=== PATIENT | female | born 1965 | race Caucasian/White ===

== ENCOUNTER 2017-05-09 10:08 | Emergency (ER) | payer OTHER ==
[2017-05-09 10:18] VITALS: BP 133/64; PULSE 63; TEMP 98.9; BMI 22.4
[2017-05-09] MEDS ORDERED: KETOROLAC TROMETHAMINE 30 MG/1 ML VIAL IVPUSH ONE (10:29)
[2017-05-09] MEDS ORDERED: SODIUM CHLORIDE 1,000 ML IV STA (10:29)
[2017-05-09] MEDS ORDERED: KETOROLAC TROMETHAMINE 30 MG/1 ML VIAL ONE (10:35)
--- NOTE | 2017-05-09 10:45 | PDOC ---
History of Present Illness - General Chief Complaint: Pain Stated Complaint: BACK PAIN/FLANK PAIN Time Seen by Provider: 05/09/17 10:26 History Source: Patient Exam Limitations: No Limitations - History of Present Illness Initial Comments: 05/09/17 10:39 CHIEF COMPLAINT: Left lower back pain since 3 AM HISTORY OF PRESENT ILLNESS: This is a 52-year-old woman with a prior history of kidney stones as well as musculoskeletal back pain. Patient states she was seen here in early March with moderate back pain and had a CT scan which demonstrated no kidney stones, but positive degenerative joint disease. She was prescribed Flexeril at that time. She also has a prescription for Percocet from another provider. She states she has been doing well, without significant pain for a while. Yesterday she was feeling fine. During the night, she awoke at 3 AM with sudden severe left paralumbar back pain. The pain kind of radiates out from the area of the left kidney. There is no lateral flank pain. There is no anterior abdominal pain. There is no fever. There is no nausea or vomiting. There is no skin rash. There is no numbness or weakness in the legs. There is no bowel or bladder incontinence. There is no saddle anesthesia. The pain does not change with movement or activity. It has been present constantly the a.m., but waxes and wanes in severity unrelated to any activities. REVIEW OF SYSTEMS: GENERAL/CONSTITUTIONAL: No fever or chills. No weakness. No weight change. HEAD, EYES, EARS, NOSE AND THROAT: No change in vision. No ear pain or discharge. No sore throat. CARDIOVASCULAR: No chest pain or shortness of breath. RESPIRATORY: No cough, wheezing, or hemoptysis. GASTROINTESTINAL: No nausea, vomiting, diarrhea or constipation. No rectal bleeding. GENITOURINARY: No dysuria, frequency, or change in urination. No hematuria. MUSCULOSKELETAL: Positive left paralumbar back pain. SKIN AND BREASTS: No rash or easy bruising. NEUROLOGIC: No headache, vertigo, loss of consciousness, or loss of sensation. PSYCHIATRIC: No depression or anxiety. Prior history of depression, not active for 5 years. ENDOCRINE: No increased thirst. No abnormal weight change. HEMATOLOGIC/LYMPHATIC: No anemia, easy bleeding, or history of blood clots. ALLERGIC/IMMUNOLOGIC: No hives or skin allergy. No latex allergy. Past History - Past Medical History Allergies/Adverse Reactions: Allergies Allergy/AdvReac Type Severity Reaction Status Date / Time No Known Allergies Allergy Verified 05/09/17 10:10 Home Medications: Ambulatory Orders Nabumetone 750 mg PO BID PRN #28 tablet 05/09/17 Oxycodone HCl/Acetaminophen [Oxycodone-Acetaminophen 5-325] 1 each PO Q6H PRN # 6 tablet MDD 4 05/09/17 Kidney Stones: Yes (x3) - Surgical History Appendectomy: Yes Other Surgical History: 05/09/17 10:43 section - Suicide/Smoking/Psychosocial Hx Smoking History: Former smoker Have you smoked in the past 12 months: No Information on smoking cessation initiated: No Hx Alcohol Use: Yes (WITH DINNER SOCIALLY, one and a half glasses of wine with dinner) Drug/Substance Use Hx: No Substance Use Type: None *Physical Exam - Vital Signs Last Vital Signs Temp Pulse Resp BP Pulse Ox 98.9 F 63 18 133/64 99 05/09/17 10:09 05/09/17 10:09 05/09/17 10:09 05/09/17 10:09 05/09/17 10:09 - Physical Exam Comments: 05/09/17 10:43 GENERAL: The patient is awake, alert, and fully oriented, in no acute distress. HEAD: Normal with no signs of trauma. EYES: Pupils equal, round and reactive to light, extraocular movements intact, sclera anicteric, conjunctiva clear. ENT: Ears normal, nares patent, oropharynx clear without exudates. Moist mucous membranes. NECK: Normal range of motion, supple without lymphadenopathy, JVD, or masses. LUNGS: Breath sounds equal, clear to auscultation bilaterally. No wheezes, and no crackles. No pain with deep inspiration. HEART: Regular rate and rhythm, normal S1 and S2 without murmur, rub or gallop. ABDOMEN: Soft, nontender, normoactive bowel sounds. No guarding, no rebound. No masses. No flank tenderness. BACK: No CVA tenderness. Positive pain in the left paralumbar region, not affected by palpation. EXTREMITIES: Normal range of motion, no edema. No clubbing or cyanosis. No cords, erythema, or tenderness. NEUROLOGICAL: Cranial nerves II through XII grossly intact. Normal speech, walking somewhat slowly due to pain, normal gait. Normal strength throughout both legs. Normal sensation throughout both legs. PSYCH: Normal mood, normal affect. SKIN: Warm, Dry, normal turgor, no rashes or lesions noted. ED Treatment Course - LABORATORY CBC & Chemistry Diagram: 05/09/17 10:30 05/09/17 10:30 Medical Decision Making - Medical Decision Making 05/09/17 13:19 Patient is a 52-year-old woman with a history of both kidney stones as well as osteoarthritis of the lumbar spine. She presents today with onset at 3 AM of left paralumbar pain. There are no urinary symptoms. The pain is not related to movement. There is no fever and no history of trauma. On examination, there is no focal tenderness. There is no tenderness over the lumbar spine. The neurological examination is normal. Laboratory workup notable for normal urinalysis without hematuria. CBC is normal. Chemistry with mild hyponatremia, not significant. Initial impression was possible kidney stone versus musculoskeletal back pain. Patient was treated with IV Toradol with minimal relief. She was then given 1 mg of hydromorphone with good relief of pain. CT scan of the abdomen and pelvis showed no evidence of kidney stones. There was degenerative change in the lumbar spine as well as some enlargement of the thecal sac. Follow-up with the spine doctor as well as MRI was recommended, and this was discussed with the patient. Final impression: Musculoskeletal back pain. No evidence for acute renal colic. *DC/Admit/Observation/Transfer Diagnosis at time of Disposition: Back pain Qualifiers: Back pain location: low back pain Chronicity: acute Back pain laterality: left Sciatica presence: without sciatica Qualified Code(s): M54.5 - Low back pain; M54.5 - Low back pain - Discharge Dispostion Disposition: HOME Condition at time of disposition: Stable Admit: No - Prescriptions Prescriptions: Nabumetone 750 mg PO BID PRN #28 tablet PRN Reason: Back Pain Oxycodone HCl/Acetaminophen [Oxycodone-Acetaminophen 5-325] 1 each PO Q6H PRN # 6 tablet MDD 4 PRN Reason: Severe Pain - Referrals Referrals: Rick Edwards MD [Staff Physician] - 2 Days - Patient Instructions Printed Discharge Instructions: DI for Low Back Pain Additional Instructions: You were evaluated today for low back pain. The CAT scan shows no signs of kidney stones. There are some changes in the lumbar spine that should be followed up with the orthopedic spine doctor, Dr. Rick Edwards. Dr. Edwards will be able to review your CT scan findings in the computer. Take nabumetone twice a day with food as needed for pain. Take oxycodone as needed for severe pain. The prescriptions have been sent to your pharmacy electronically. Return to the emergency department for any severe or progressive symptoms.
[2017-05-09] MEDS ORDERED: HYDROmorphone HCL CARPU-JECT 1 MG/1 ML DISP.SYRIN ONE (10:50)
[2017-05-09] MEDS ORDERED: HYDROmorphone HCL CARPU-JECT 1 MG/1 ML DISP.SYRIN IVPUSH ONE (10:50)
[2017-05-09 10:53] LABS: PH,URINE 5.5 (4.5-8); URINE APPEARANCE Clear; URINE BILIRUBIN Negative (NEGATIVE); URINE BLOOD Negative (NEGATIVE); URINE GLUCOSE (UA) Negative (NEGATIVE); URINE KETONE Negative (NEGATIVE); URINE LEUK ESTERASE Negative (NEGATIVE); URINE NITRITE Negative (NEGATIVE); URINE PROTEIN Negative (NEGATIVE); URINE UROBILINOGEN 0.2 (0.2-1.0)
[2017-05-09 10:54] LABS: URINE COLOR YELLOW
[2017-05-09 10:59] LABS: BASOPHIL 0.3 % (0-2.0); EOSINOPHIL 0.2 % (0-4.5); MCH 31.4 pg (25.7-33.7); MEAN CELL VOLUME 92.3 fl (80-96); MEAN PLT VOLUME 9.3 fl (7.5-11.1); NEUTROPHILS 70.4 % (42.8-82.8); PLATELET COUNT 252 K/MM3 (134-434); RDW 12.4 % (11.6-15.6); WHITE BLOOD COUNT 5.4 K/mm3 (4.0-10.8)
[2017-05-09 12:12] LABS: CREATININE 0.7 mg/dl (0.6-1.3); GLUCOSE,RANDOM 99 mg/dl (74-106)
[2017-05-09 12:13] LABS: ANION GAP 7 (8-16); CALCIUM 9.3 mg/dl (8.4-10.2); CO2 25 mmol/L (22-28)
== END 2017-05-09 13:45 | disposition home or self-care (01) ==
LOC: FER 10:08
PROC: 3E033NZ Introduction of Analgesics, Hypnotics, Sedatives into Peripheral Vein, Percutaneous Approach (ICD-10-PCS; principal; 2017-05-09)
PROC: 3E0333Z Introduction of Anti-inflammatory into Peripheral Vein, Percutaneous Approach (ICD-10-PCS; 2017-05-09)
PROC: 3E0337Z Introduction of Electrolytic and Water Balance Substance into Peripheral Vein, Percutaneous Approach (ICD-10-PCS; 2017-05-09)
DX: M54.5 Low back pain (principal); Z87.442 Personal history of urinary calculi; Z87.891 Personal history of nicotine dependence
CPT/HCPCS: 36415; 74176-TC; 80048; 81003; 85025; 99282-25

== ENCOUNTER 2018-04-08 04:48 | Emergency (ER) | payer OTHER ==
[2018-04-08] MEDS ORDERED: KETOROLAC TROMETHAMINE 30 MG/1 ML VIAL IVPUSH ONE (04:50)
[2018-04-08] MEDS ORDERED: SODIUM CHLORIDE 1,000 ML IV STA (04:50)
--- NOTE | 2018-04-08 04:51 | PDOC ---
History of Present Illness - General Chief Complaint: Pain, Acute Stated Complaint: LEFT FLANK PAIN Time Seen by Provider: 04/08/18 04:50 - History of Present Illness Initial Comments: This 53-year-old woman with a several year history of intermittent left lower back/flank pain presents with a few day history of this symptom. Patient states that she was visiting her daughter in [facility] a few days ago. She developed the usual paralumbar left-sided back pain. She seen in the ER of a hospital there. After evaluation and treatment, patient had some relief but residual soreness. She returned home yesterday and overnight tonight had onset of severe pain in the area. No new radiation of pain; no nausea/vomiting/fever/ chills. No hematuria, dysuria or urinary frequency. Patient has been seen in this ER several times with this presentation of pain: she hasn't had stones demonstrated during any of these episodes although she states that a few years ago left-sided renal stones were demonstrated when she presented to an ER in [place]. She currently does not have a urologist but states that she "will get one. " Degenerative changes of the spine have also been seen during the workup of this pain. Therefore, she also carries a diagnosis of musculoskeletal strain/spinal arthritis causing his current symptoms. 0 Past History - Past Medical History Allergies/Adverse Reactions: Allergies Allergy/AdvReac Type Severity Reaction Status Date / Time No Known Allergies Allergy Verified 04/08/18 04:50 Home Medications: Ambulatory Orders Cyclobenzaprine HCl 10 mg PO TID 04/08/18 Ketorolac Tromethamine [Toradol] 10 mg PO TID 04/08/18 Kidney Stones: Yes - Surgical History Appendectomy: Yes - Suicide/Smoking/Psychosocial Hx Smoking History: Former smoker Have you smoked in the past 12 months: No Hx Alcohol Use: Yes (WITH DINNER SOCIALLY, one and a half glasses of wine with dinner) Drug/Substance Use Hx: No Substance Use Type: None Review of Systems - Review of Systems Able to Perform ROS?: Yes *Physical Exam - Physical Exam Comments: GENERAL: Adult female, tearful, in moderate distress secondary to left-sided lower back pain HEAD: Normal with no signs of trauma. EYES: PERRLA, EOMI, sclera anicteric, conjunctiva clear. ENT: Ears normal, nares patent, oropharynx clear without exudates. Dry mucous membranes. NECK: Normal range of motion, supple without lymphadenopathy, JVD, or masses. LUNGS: Breath sounds equal, clear to auscultation bilaterally. No wheezes, and no crackles. HEART:Regular rate and rhythm, normal S1 and S2 without murmur, rub or gallop. ABDOMEN:.normal bowel sounds No guarding,tenderness or rebound.No masses No distention. EXTREMITIES: Normal range of motion, no edema. No clubbing or cyanosis. No erythema, or tenderness. NEUROLOGICAL: Cranial nerves II through XII grossly intact. Normal speech. No focal neurological deficits. MUSCULOSKELETAL: Back non-tender to palpation, no CVA tenderness SKIN: Warm, Dry, normal turgor, no rashes or lesions noted. ED Treatment Course - LABORATORY CBC & Chemistry Diagram: 04/08/18 04:52 04/08/18 04:51 Progress Note - Progress Note Progress Note: 53-year-old woman with recurrent left lower back/left flank pain, with history of renal stones but also of musculoskeletal etiology of symptoms, presents with a few day history of progressive pain in this area. No other associated symptoms. Exam as noted Because of possibility of renal colic giving the patient this pain, she was given a liter normal saline and Toradol 30 mg IV. Toradol ineffective; patient has same amount of pain after administration of Toradol 30 mg IV. Dilaudid 1 mg IV given. Laboratory evaluation essentially normal. Renal stone protocol CT obtained: Normal without evidence of nephrolithiasis, ureterolithiasis or obstructive uropathy. No bladder calculi seen. Remainder of study without abnormal findings except minimal lumbosacral dural ectasia. *DC/Admit/Observation/Transfer Diagnosis at time of Disposition: Lower back pain Qualifiers: Chronicity: acute Back pain laterality: left Sciatica presence: without sciatica Qualified Code(s): M54.5 - Low back pain - Discharge Dispostion Disposition: HOME Condition at time of disposition: Stable - Referrals Referrals: Rick Edwards MD [Staff Physician] - - Patient Instructions Printed Discharge Instructions: Low Back Pain Additional Instructions: call Dr Edwards's office today for followup within the next few days Return to ER if you have any severe episode of pain - Post Discharge Activity
[2018-04-08] MEDS ORDERED: HYDROmorphone HCL CARPU-JECT 1 MG/1 ML DISP.SYRIN ONE (04:58)
[2018-04-08] MEDS ORDERED: HYDROmorphone HCL CARPU-JECT 1 MG/1 ML DISP.SYRIN IVPUSH ONE (04:59)
[2018-04-08 05:03] VITALS: TEMP 97.9; BMI 21.7
[2018-04-08 05:55] LABS: BASO % 0.6 % (0-2.0); EOS % 2.1 % (0-4.5); HEMATOCRIT 43.4 % (32.4-45.2); HEMOGLOBIN 14.5 GM/dL (10.7-15.3); LYMPH % 44.2 % (8-40); MCHC 33.5 g/dl (32.0-36.0); MEAN CELL VOLUME 95.7 fl (80-96); MEAN PLT VOLUME 9.7 fl (7.5-11.1); MONO % 6.7 % (3.8-10.2); NEUT % 46.4 % (42.8-82.8); PLATELET COUNT 249 K/MM3 (134-434); RBC 4.54 M/mm3 (3.60-5.2); RDW 13.2 % (11.6-15.6); WHITE BLOOD COUNT 6.7 K/mm3 (4.0-10.0)
[2018-04-08 05:59] LABS: URINE APPEARANCE CLEAR; URINE BILIRUBIN NEGATIVE (<2.0 mg/dL); URINE COLOR STRAW; URINE GLUCOSE (UA) NEGATIVE (NEGATIVE); URINE KETONE NEGATIVE (NEGATIVE); URINE LEUK ESTERASE NEGATIVE (NEGATIVE); URINE NITRITE NEGATIVE (NEGATIVE); URINE PROTEIN NEGATIVE (NEGATIVE); URINE UROBILINOGEN NEGATIVE mg/dL (0.2-1.0)
[2018-04-08 06:20] LABS: ALBUMIN 4.1 g/dl (3.4-5.0); ALK PHOS 82 U/L (45-117); ANION GAP 8 MMOL/L (8-16); BILIRUBIN,TOTAL 0.4 mg/dL (0.2-1.0); BLOOD UREA NITROGEN 18 mg/dL (7-18); CALCIUM 9.3 mg/dL (8.5-10.1); CHLORIDE 105 mmol/L (98-107); CO2 29 mmol/L (21-32); CREATININE 0.7 mg/dL (0.55-1.02); GLUCOSE,RANDOM 95 mg/dL (74-106); POTASSIUM 4.6 mmol/L (3.5-5.1); SGOT/AST 15 U/L (15-37); SGPT/ALT 21 U/L (12-78); SODIUM 142 mmol/L (136-145); TOT PROT 7.5 g/dl (6.4-8.2)
[2018-04-08 07:01] VITALS: BP 100/60; PULSE 60
== END 2018-04-08 07:03 | disposition home or self-care (01) ==
LOC: FER 04:48
PROC: 3E033NZ Introduction of Analgesics, Hypnotics, Sedatives into Peripheral Vein, Percutaneous Approach (ICD-10-PCS; principal; 2018-04-08)
PROC: 3E0333Z Introduction of Anti-inflammatory into Peripheral Vein, Percutaneous Approach (ICD-10-PCS; 2018-04-08)
PROC: 3E0337Z Introduction of Electrolytic and Water Balance Substance into Peripheral Vein, Percutaneous Approach (ICD-10-PCS; 2018-04-08)
DX: M54.5 Low back pain (principal); G89.29 Other chronic pain
CPT/HCPCS: 36415; 74176; 80053; 81003; 85025; 99281-25; J7030

== ENCOUNTER 2020-03-03 08:15 | Emergency (ER) | payer OTHER ==
[2020-03-03 08:19] VITALS: TEMP 98.6; BMI 23.0
--- NOTE | 2020-03-03 08:23 | PDOC ---
History of Present Illness - General Chief Complaint: Pain, Acute Stated Complaint: LOW BACK PAIN Time Seen by Provider: 03/03/20 08:23 History Source: Patient Exam Limitations: No Limitations - History of Present Illness Initial Comments: 03/03/20 08:53 Pt presents to the ED complaining of the acute onset of L flank pain yesterday. Denies trauma. Pain is sharp, stabbing, severe and constant. There is no radiation and no aggravating or alieviating factors. Denies fever, nausea and vomiting or urinary complaints. Denies leg weakness or numbness. Denies problems with bowel or bladder control. Patient reports a history of similar pain and has been seen in the ED for similar pain multiple times. Has had Ct scans for renal stones several times which have been negative. Has some imaging studies in the past which suggest spinal stenosis or other degenerative changes of the spine. States that she has not obtained follow up because her symptoms have been intermittent and not very severe. 03/03/20 09:52 Past History - Medical History Allergies/Adverse Reactions: Allergies Allergy/AdvReac Type Severity Reaction Status Date / Time No Known Allergies Allergy Verified 03/03/20 08:16 Home Medications: Ambulatory Orders Cyclobenzaprine HCl 10 mg PO TID 04/08/18 Ketorolac Tromethamine [Toradol] 10 mg PO TID 04/08/18 Ibuprofen 600 mg PO QID PRN #20 tablet 12/20/19 Lidocaine 5% Patch [Lidoderm Patch -] 1 patch TP DAILY #7 patch 12/20/19 COPD: No Kidney Stones: Yes - Surgical History Appendectomy: Yes - Psycho-Social/Smoking History Smoking History: Former smoker Have you smoked in the past 12 months: No Information on smoking cessation initiated: No - Substance Abuse Hx (Audit-C & DAST Scrn) How often the patient has a drink containing alcohol: Never Score: In Men: 4 or > Positive; In Women: 3 or > Positive: 0 Screen Result (Pos requires Nsg. Audit-10AR): Negative In the last yr the pt used illegal drug/Rx for NonMed reason: No Score: Yes response is considered Positive: 0 Screen Result (Positive result requires Nsg. DAST-10): Negative Review of Systems - Review of Systems Able to Perform ROS?: Yes Constitutional: No: Symptoms Reported, See HPI, Chills, Diaphoresis, Fever, Loss of Appetite, Malaise, Night Sweats, Weakness, Weight Stable, Unintentional Wgt. Loss, Unexplained wgt Loss, Other HEENTM: No: Symptoms Reported, See HPI, Eye Pain, Blurred Vision, Tearing, Recent change in vision, Double Vision, Cataracts, Ear Pain, Ocular Prothesis, Ear Discharge, Nose Pain, Nose Congestion, Tinnitus, Nose Bleeding, Hearing Loss, Throat Pain, Throat Swelling, Mouth Pain, Dental Problems, Difficulty Swallowing, Mouth Swelling, Other Respiratory: No: Symptoms reported, See HPI, Cough, Orthopnea, Shortness of Breath, SOB with Exertion, SOB at Rest, Stridor, Wheezing, Productive cough, Hemoptysis, Other Cardiac (ROS): No: Symptoms Reported, See HPI, Chest Pain, Edema, Irregular Heart Rate, Lightheadedness, Palpitations, Syncope, Chest Tightness, Other ABD/GI: No: Symptoms Reported, See HPI, Abdominal Distended, Abd. Pain w/ defecation, Blood Streaked Bowels, Constipated, Diarrhea, Difficulty Swallowing, Nausea, Poor Appetite, Poor Fluid Intake, Rectal Bleeding, Vomiting, Indigestion, Abdominal cramping, Tarry Stools, Other : Yes: Flank Pain. No: Symptoms Reported, See HPI, Burning, Dysuria, Discharge, Frequency, Hematuria, Incontinence, Pain, Urgency, Lesions, Other Musculoskeletal: Yes: Back Pain. No: Symptoms Reported, See HPI, Gout, Joint Pain, Joint Swelling, Muscle Pain, Muscle Weakness, Neck Pain, Joint Stiffness, Other Neurological: No: Symptoms reported, See HPI, Headache, Numbness, Paresthesia, Pre-Existing Deficit, Seizure, Tingling, Tremors, Weakness, Unsteady Gait, Ataxia, Dizziness, Other *Physical Exam - Vital Signs Last Vital Signs Temp Pulse Resp BP Pulse Ox 98.6 F 74 18 133/74 97 03/03/20 08:16 03/03/20 08:16 03/03/20 08:16 03/03/20 08:16 03/03/20 08:16 - Physical Exam 03/03/20 09:56 gen: alert, mild to moderate distress secondary to pain. HEENt: normocephalic, atraumatic CV: rrr no m/r/g Pulm: cTA b/l aBdomen: soft, non tender, non distended, no guarding or rebound Back: + L sided paraspinal tenderness. No midline tenderness. No CVA tenderness Neuro: Alert and oriented x 3, CN 2-12 grossly intact. ambulatory with antalgic gait. 5/5 strength bilateral knee flexion and great toe extension. intact light touch sensation. 03/03/20 10:51 Medical Decision Making - Medical Decision Making 03/03/20 10:55 Pt presents to the ED complaining of L flank pain. Patient has presented to the Ed with similar complaints multiple times over the past two years with similar complaints. Multiple CT scans in the past negative for renal stone. No clinical signs or symptoms to strongly suggest renal stone. LS spine xray negative for acute findings on my read. No neurologic complaints or exam findings. Symptoms are most consistent with musculoskeletal back pain. Pain greatly improved with toradol and 1 mg of dlilaudid IM. Will discharge home with spine and PCP follow up and instruct to return to the ED for worsening symptoms. 03/03/20 11:33 Discharge - Discharge Information Problems reviewed: Yes Clinical Impression/Diagnosis: Lower back pain Qualifiers: Chronicity: acute Back pain laterality: left Sciatica presence: without sciatica Qualified Code(s): M54.5 - Low back pain Condition: Good - Admission No - Follow up/Referral Referrals: Mando Villa MD, FA[facility] [Staff Physician] - Peggy Forrester MD [Staff Physician] - - Patient Discharge Instructions Patient Printed Discharge Instructions: DI for Low Back Pain Additional Instructions: you came to the Ed for back pain. We did xrays, which showed no concerning findings. Since you have had multiple episodes of this pain at this point, you should follow up with a spinal surgeon. You should return immediately to the Ed for worsening pain, pain with fever, weakness or numbness of your legs, problems controlling your bladder or bowel movements or other new or worsening symptoms. Call for an appointment with a primary care doctor. Take the ibuprofen that you have at home, one pill every 8 hours with food for two days. After that, you can use them as needed for pain. - Post Discharge Activity
[2020-03-03] MEDS ORDERED: KETOROLAC TROMETHAMINE 60 MG/2 ML VIAL ONE (08:28)
[2020-03-03] MEDS ORDERED: KETOROLAC TROMETHAMINE 60 MG/2 ML VIAL IM ONE (08:29)
[2020-03-03] MEDS ORDERED: HYDROmorphone HCL CARPU-JECT 1 MG/1 ML DISP.SYRIN IM ONE (09:32)
[2020-03-03] MEDS ORDERED: HYDROmorphone HCL CARPU-JECT 1 MG/1 ML DISP.SYRIN ONE (09:32)
[2020-03-03 10:42] VITALS: BP 110/71; PULSE 75
== END 2020-03-03 10:52 ==
LOC: FER 08:15
PROC: 3E0233Z Introduction of Anti-inflammatory into Muscle, Percutaneous Approach (ICD-10-PCS; principal; 2020-03-03)
PROC: 3E023GC Introduction of Other Therapeutic Substance into Muscle, Percutaneous Approach (ICD-10-PCS; 2020-03-03)
DX: M54.5 Low back pain (principal)
CPT/HCPCS: 72070-TC-FY; 72100-TC-FY; 99284-25

== ENCOUNTER 2020-03-05 13:17 | Emergency (ER) | payer OTHER ==
[2020-03-05] MEDS ORDERED: predniSONE 20 MG TABLET (UD) PO ONE (13:44)
[2020-03-05] MEDS ORDERED: METHOCARBAMOL 500 MG TABLET PO ONE (13:44)
[2020-03-05] MEDS ORDERED: oxyCODONE HCL 5 MG TABLET PO ONE (13:44)
[2020-03-05] MEDS ORDERED: oxyCODONE HCL 5 MG TABLET ONE (13:47)
[2020-03-05] MEDS ORDERED: METHOCARBAMOL 500 MG TABLET ONE (13:47)
[2020-03-05] MEDS ORDERED: predniSONE 20 MG TABLET (UD) ONE (13:47)
[2020-03-05 13:50] VITALS: BP 140/63; PULSE 96; TEMP 97.5; BMI 23.0
--- NOTE | 2020-03-05 13:52 | PDOC ---
History of Present Illness - General Chief Complaint: Back Pain Stated Complaint: BACK PAIN Time Seen by Provider: 03/05/20 13:22 - History of Present Illness Initial Comments: 03/05/20 13:47 55yo female with no pmhx other than chronic lbp for the past 8 years that flares up every 4months or so, told she has spinal stenosis presents again for a repeat evaluation of L low back pain. Pt states she feels a burning sensation to her L low back. Pt denies radiation of the pain. Pt denies leg weakness, paresthesias, saddle paresthesias, incontinence. Pt states she used a lidoderm patch from a prior visit, motrin, and flexeril without relief. States she has been told her pain might be renal colic, but has had multiple neg ct scans in the past. Pt states she saw a rheumatology specialist in the past, but states she was told - its old age and nothing to do. Pt denies hematuria, dysuria, urgency, freq, hesitancy of urination, No flank pain. Pt denies cp/sob, f/c. no cough. no abd pain. no n/v/d. Pt unable to get comfortable, crying, walking around the room holding her R low back. No pmhx, hx of appy. No allergies. Last dose of motrin was 9am today. Pt denies all other complaints. 03/05/20 13:55 Past History - Medical History Allergies/Adverse Reactions: Allergies Allergy/AdvReac Type Severity Reaction Status Date / Time No Known Allergies Allergy Verified 03/03/20 08:16 Home Medications: Ambulatory Orders Cyclobenzaprine HCl 10 mg PO TID 04/08/18 Ketorolac Tromethamine [Toradol] 10 mg PO TID 04/08/18 Ibuprofen 600 mg PO QID PRN #20 tablet 12/20/19 Lidocaine 5% Patch [Lidoderm Patch -] 1 patch TP DAILY #7 patch 12/20/19 Methocarbamol [Robaxin -] 500 mg PO BID PRN #14 tablet 03/05/20 Oxycodone HCl/Acetaminophen [Percocet 5-325 mg Tablet] 1 tab PO Q6H PRN #10 tablet MDD 4 tabs a day 03/05/20 COPD: No Kidney Stones: Yes - Surgical History Appendectomy: Yes - Psycho-Social/Smoking History Smoking History: Never smoked Have you smoked in the past 12 months: No Information on smoking cessation initiated: No - Substance Abuse Hx (Audit-C & DAST Scrn) How often the patient has a drink containing alcohol: Never Score: In Men: 4 or > Positive; In Women: 3 or > Positive: 0 Screen Result (Pos requires Nsg. Audit-10AR): Negative In the last yr the pt used illegal drug/Rx for NonMed reason: No Score: Yes response is considered Positive: 0 Screen Result (Positive result requires Nsg. DAST-10): Negative Review of Systems - Review of Systems Able to Perform ROS?: Yes Is the patient limited Vietnamese proficient: No Constitutional: No: Chills, Fever HEENTM: No: Nose Congestion, Throat Pain Respiratory: No: Cough, Shortness of Breath Cardiac (ROS): No: Chest Pain, Lightheadedness, Palpitations ABD/GI: No: Diarrhea, Nausea, Vomiting, Abdominal cramping : No: Burning, Dysuria, Frequency, Flank Pain, Hematuria, Incontinence, Urgency Musculoskeletal: Yes: Back Pain. No: Joint Pain, Muscle Pain, Muscle Weakness, Neck Pain Integumentary: No: Rash Neurological: No: Headache, Numbness, Paresthesia, Tingling, Tremors, Weakness, Unsteady Gait, Ataxia All Other Systems: Reviewed and Negative *Physical Exam - Vital Signs Last Vital Signs Temp Pulse Resp BP Pulse Ox 97.5 F L 96 H 18 140/63 97 03/05/20 13:17 03/05/20 13:17 03/05/20 13:17 03/05/20 13:17 03/05/20 13:17 - Physical Exam General Appearance: Yes: Nourished, Appropriately Dressed, Apparent Distress, Other (crying, walking around the exam room, unable to get comfortable) HEENT: positive: EOMI, Normal Voice Neck: positive: Supple. negative: Tender lateral, Tender midline Respiratory/Chest: positive: Lungs Clear, Normal Breath Sounds. negative: Chest Tender, Respiratory Distress Cardiovascular: positive: S1, S2, Tachycardia. negative: Edema Gastrointestinal/Abdominal: positive: Soft. negative: Guarding, Rebound, Tenderness Musculoskeletal: negative: CVA Tenderness, CVA Tenderness (R), CVA Tenderness (L) Extremity: positive: Normal Capillary Refill, Normal Range of Motion, Other (ambulating in the ER). negative: Swelling, Calf Tenderness Integumentary: positive: Normal Color, Dry, Warm Neurologic: positive: Fully Oriented, Alert, Motor Strength 5/5. negative: Sensory Deficit Medical Decision Making - Medical Decision Making 03/05/20 13:57 a/p: 55yo female with L lbp -will send ua -no signs/symptoms of caude equina -paraspinal ttp, lateral to SI joint in low back -lidoderm patch in place, took motrin at 9am -will give oxycodone, robaxin, prednisone -burning sensation, poss early start of shingles, but currently no rash -xrays for 2 days ago reviewed without acute bony pathology, no midline ttp, no redness or swelling -will monitor and reassess 03/05/20 15:08 pt with blood in urine discussed with emily, still in pain sent for ct imaging to eval renal stone 03/05/20 16:[address] does not show any acute obstructing renal stones ct results discussed with the patient states her pain is better and tolerable will recommend pt follow up with Dr. Villa this week and also recommend and eval by Dr. Petit pt ambulatory in the ER stable for dc to home answered all questions Discharge - Discharge Information Problems reviewed: Yes Clinical Impression/Diagnosis: Left low back pain Condition: Stable Disposition: HOME - Admission No - Additional Discharge Information Prescriptions: Oxycodone HCl/Acetaminophen [Percocet 5-325 mg Tablet] 1 tab PO Q6H PRN #10 tablet MDD 4 tabs a day PRN Reason: Pain Methocarbamol [Robaxin -] 500 mg PO BID PRN #14 tablet PRN Reason: Muscle Spasms - Follow up/Referral Referrals: Rashad Lockett MD [Staff Physician] - Mando Villa MD, FAANS [Staff Physician] - - Patient Discharge Instructions Patient Printed Discharge Instructions: DI for Low Back Pain Additional Instructions: Please call Dr. Lockett and Dr. Villa to schedule a follow up. Please take all medications as prescribed. Please do not drive or operate heavy machinery while taking the percocet or the robaxin. Please return to the ER with any further concerns or complaints. - Post Discharge Activity
[2020-03-05 14:15] LABS: AMORP URATES 1+ /hpf (NONE SEEN); EPITHELIAL CELLS FEW /hpf
[2020-03-05] MEDS ORDERED: HYDROmorphone HCL CARPU-JECT 1 MG/1 ML DISP.SYRIN IM ONE (14:16)
[2020-03-05] MEDS ORDERED: HYDROmorphone HCL CARPU-JECT 1 MG/1 ML DISP.SYRIN ONE (14:18)
== END 2020-03-05 16:25 | disposition home or self-care (01) ==
LOC: FER 13:17
PROC: 3E023GC Introduction of Other Therapeutic Substance into Muscle, Percutaneous Approach (ICD-10-PCS; principal; 2020-03-05)
DX: M54.5 Low back pain (principal)
CPT/HCPCS: 74176-TC; 81003; 81015; 99285-25

== ENCOUNTER 2020-04-08 09:00 | Emergency (ER) | payer OTHER ==
[2020-04-08 09:23] VITALS: BP 137/80; PULSE 89; TEMP 98.7; BMI 23.0
[2020-04-08] MEDS ORDERED: predniSONE 20 MG TABLET (UD) PO ONE (09:43)
[2020-04-08] MEDS ORDERED: LIDOCAINE 5% TOPICAL PATCH TP ONE (09:44)
[2020-04-08] MEDS ORDERED: KETOROLAC TROMETHAMINE 30 MG/1 ML VIAL IM ONE (09:44)
[2020-04-08] MEDS ORDERED: predniSONE 20 MG TABLET (UD) ONE (09:48)
[2020-04-08] MEDS ORDERED: LIDOCAINE 5% TOPICAL PATCH ONE (09:48)
[2020-04-08] MEDS ORDERED: KETOROLAC TROMETHAMINE 30 MG/1 ML VIAL ONE (09:54)
--- NOTE | 2020-04-08 10:25 | PDOC ---
Attending Attestation - Resident Resident Name: ClaycarolDamian - ED Attending Attestation I have performed the following: I have examined & evaluated the patient, The case was reviewed & discussed with the resident, I agree w/resident's findings & plan, Exceptions are as noted - HPI HPI: 04/08/20 10:25 55YOF with h/o lumbar DDD and chronic back pain x6 years with occasional flares that have become more frequent in recent months. She p/w exacerbated chronic left lumbar paraspinous pain, without any known injury, and without new n/t/w focally, urinary or bowel incontinence or retention, rash, f/c/n/v/d/c, B symptoms, syncope, lightheadedness, or diaphoresis. She denies any recent known bacterial infections, denies dysuria or h/o kidney infections. She has been taking her home medications including half an oxycodone but has run out. She has an appointment coming up with neurosurgeon Dr. Velazquez. - Physicial Exam PE: 04/18/20 02:27 GENERAL: uncomfortable but nontoxic-appearing, A/Ox4, answers questions appropriately, pleasant HEENT: PERRLA, EOMI, moist mucous membranes NECK/BACK: left diffuse lumbar paraspinous tenderness, no midline ttp, no spinal step-off or deformity, no hematoma, full ROM, neck supple CARDIOVASCULAR: regular rate/rhythm, no MGR, strong peripheral pulses, capillary refill <2 seconds, extremities wwp, no edema LUNGS/RESPIRATORY: no respiratory distress, CTAB GI/ABDOMEN: symmetric [id number], normoactive BS, soft, no ttp, no midline pulsatile masses : no CVA tenderness MSK/EXTREMITIES: no muscle atrophy, no acute deformity SKIN: warm and dry, no pallor, no jaundice, no rash, no pathologic-appearing bruising, no skin breakdown, no cuts, no lesions NEUROLOGICAL: GCS 15, CN II-XII grossly intact, 5/5 strength proximally and distally, no facial droop - Medical Decision Making Pt with h/o with chronic back pain p/w acute exacerbation of same chronic back pain. Initial Vital Signs Temp Pulse Resp BP Pulse Ox 98.7 F 89 16 137/80 100 04/08/20 09:01 04/08/20 09:01 04/08/20 09:01 04/08/20 09:01 04/08/20 09:01 No new red flag symptoms. at extreme of age, has no h/o aortic aneurysm or dissection, no h/o osteoporosis or prolonged glucocorticoid or anticoagulant use, no h/o IVDU or immune compromise, no recent bacterial infections. No h/o cancer and no significant risk factors for cancer. The patient reports no recent trauma, weight loss, night sweats, swollen lymph nodes, fever, pain worsening with rest or at night, neuro focal deficit (no numbness/tingling/weakness focally), bowel or bladder dysfunction, or associated syncope, nausea, or diaphoresis. The pain is not severe or progressive, has been present for <6 weeks, and is not associated with thoracic or abdominal pain. DDX IBNLT: DDD, DJD, osteophyte, compression fxr, other vertebral or spinous process fxr; much LL malignancy (i.e. multiple myeloma), spinal epidural abscess, epidural hematoma, meningitis, or other more concerning etiology. Provider Orders Category Date Time Status UA ([facility] ONLY) Stat Lab 04/08/20 09:45 Completed URINE MICROSCOPIC ([facility]) Stat Lab 04/08/20 09:45 Completed Ketorolac Injection [Toradol Injection -] Medication 04/08/20 09:54 Discontinued 30 mg .ROUTE .STK-MED ONE Ketorolac Injection [Toradol Injection -] Medication 04/08/20 09:44 Discontinued 30 mg IM ONCE ONE Lidocaine 5% Patch [Lidoderm Patch -] Medication 04/08/20 09:48 Discontinued 1 patch .ROUTE .STK-MED ONE Lidocaine 5% Patch [Lidoderm Patch -] Medication 04/08/20 09:44 Discontinued 1 patch TP ONCE ONE Lidocaine Patch Removal [Lidoderm Patch Removal] Medication 04/08/20 22:00 Discontinued 1 each MC DAILY@2200 Oxycodone HCl/Acetaminophen [Percocet 5/325 -] Medication 04/08/20 09:47 Discontinued 1 combo .ROUTE .STK-MED ONE Oxycodone HCl/Acetaminophen [Percocet 5/325 -] Medication 04/08/20 09:44 Discontinued 1 combo PO ONCE ONE predniSONE [Deltasone -] Medication 04/08/20 09:48 Discontinued 40 mg .ROUTE .STK-MED ONE predniSONE [Deltasone -] Medication 04/08/20 09:43 Discontinued 40 mg PO ONCE ONE Medications Discontinued Medications Generic Name Dose Route Start Last Admin Trade Name Dario PRN Reason Stop Dose Admin Ketorolac Tromethamine 30 mg 04/08/20 09:44 04/08/20 10:00 Toradol Injection - IM 04/08/20 09:45 30 mg ONCE ONE Administration Ketorolac Tromethamine Confirm 04/08/20 09:54 Toradol Injection - Administered 04/08/20 09:55 Dose 30 mg .ROUTE .STK-MED ONE Lidocaine 1 patch 04/08/20 09:44 04/08/20 09:55 Lidoderm Patch - TP 04/08/20 09:45 1 patch ONCE ONE Administration Lidocaine Confirm 04/08/20 09:48 Lidoderm Patch - Administered 04/08/20 09:49 Dose 1 patch .ROUTE .STK-MED ONE Miscellaneous 1 each 04/08/20 22:00 Lidoderm Patch Removal MC DAILY@2200 RU Oxycodone/Acetaminophen 1 combo 04/08/20 09:44 04/08/20 09:55 Percocet 5/325 - PO 04/08/20 09:45 1 combo ONCE ONE Administration Oxycodone/Acetaminophen Confirm 04/08/20 09:47 Percocet 5/325 - Administered 04/08/20 09:48 Dose 1 combo .ROUTE .STK-MED ONE Prednisone 40 mg 04/08/20 09:43 04/08/20 09:50 Deltasone - PO 04/08/20 09:44 40 mg ONCE ONE Administration Prednisone Confirm 04/08/20 09:48 Deltasone - Administered 04/08/20 09:49 Dose 40 mg .ROUTE .STK-MED ONE Lab Results Urine Color Yellow 04/08/20 09:45 Urine Appearance Clear 04/08/20 09:45 Urine pH 5.5 (4.5-8) 04/08/20 09:45 Urine Protein Negative (NEGATIVE) 04/08/20 09:45 Urine Glucose (UA) Negative (NEGATIVE) 04/08/20 09:45 Urine Ketones Negative (NEGATIVE) 04/08/20 09:45 Urine Blood Negative (NEGATIVE) 04/08/20 09:45 Urine Nitrite Negative (NEGATIVE) 04/08/20 09:45 Urine Bilirubin 2+ (NEGATIVE) H 04/08/20 09:45 Urine Urobilinogen 0.2 (0.2-1.0) 04/08/20 09:45 Ur Leukocyte Esterase 1+ (NEGATIVE) 04/08/20 09:45 Urine RBC 0-2 /hpf (0-4) 04/08/20 09:45 Urine WBC 2-5 (NEGATIVE) 04/08/20 09:45 Ur Transition Epith Cell Few /hpf 04/08/20 09:45 Urine Bacteria Few /hpf (NEGATIVE) 04/08/20 09:45 The Pt has gotten significant relief of symptoms while in the ED. They are appropriate for discharge with close outPt follow up. The Pt is comfortable with this plan and will follow up with PCP in 1-3 days. She will also keep her appointment with NS. Specific return precautions are discussed and they will come back to the ER if necessary. E-Rx is sent to her pharmacy for corticosteroid short course and for a few pills of percocet. Discharge - Discharge Information Problems reviewed: Yes Clinical Impression/Diagnosis: Acute exacerbation of chronic low back pain Condition: Stable Disposition: HOME - Admission No - Additional Discharge Information Prescriptions: Methylprednisolone [Medrol Dose Dashawn] 4 mg PO ASDIR #21 tablet Oxycodone HCl/Acetaminophen [Percocet 5-325 mg Tablet] 1 tab PO Q12H PRN #2 tablet MDD 2 PRN Reason: Back Pain - Follow up/Referral Referrals: Mando Villa MD, [facility] [Staff Physician] - Reyes Avendano DO [Staff Physician] - Rashad Lockett MD [Staff Physician] - Hansel Wilkes MD [Staff Physician] - - Patient Discharge Instructions Patient Printed Discharge Instructions: DI for Low Back Pain Additional Instructions: You were seen in the ER for an acute flare-up of your back pain. We gave you an injection of toradol, a Percocet, and a lidocaine which helped with take the edge off your pain. Please follow up with Neurosurgery and Rheumatology for your workup and treatment (we are giving the contact info in case you have misplaced it). Please also follow up with your primary care provider in 1-3 days. Call their clinic as soon as possible, tell them you were seen in the ER for back pain, and tell them you need an appointment. If you have any new or worsening symptoms please come back to the ER at any time (24 hours a day), especially for fever, new numbness, new tingling new weakness, new urinary or bowel incontinence or retention, or other new symptoms. If you are having severe or life threatening symptoms, or symptoms that make it unsafe to drive or have someone drive you, please call 911. Also, please see your Primary Doctor and and discuss outpatient Physical Therapy for further care of your pain. You were referred to Pain Management, please call and make an appointment as soon as possible. Thank you - Post Discharge Activity Work/Back to School Note: Back to Work
[2020-04-08 10:34] LABS: EPITHELIAL CELLS FEW /hpf
--- NOTE | 2020-04-08 10:34 | PDOC ---
History of Present Illness - General Chief Complaint: Back Pain Stated Complaint: BACK PAIN Time Seen by Provider: 04/08/20 09:20 History Source: Patient Exam Limitations: No Limitations - History of Present Illness Initial Comments: 04/08/20 09:46 55 yo female pmh chronic left sided T spine/parispinal back pain presents to the ED with acute left sided back pain. Pt presents to the ED frequently for back pain of a similar quality and intensity to todays complaint, denies any recent trauma, F/C/N/V or changes in urinary habits. Pt has been worked up multiple times in the past including labs, UA, CT scans showing T-L spine degenerative joint disease but otherwise, no specific diagnosis for acute/severe pain made. Pt given outpatient f/u with NS and Rheum, appointments pending. Pt states she has been dealing with this pain for approx 6 years with flare ups approx every 4 months however more recently, pt has noted an increased frequency of flare ups every month. Pt states the only thing that helps her pain is oxycodone, morphine and sometimes predisone all given to her on the last visit and all are almost finished. Pt reports anxiety related to her medications a lmost finishing. States she last took oxycodone last night which helped but has not taken Motrin or robaxin. Pain is described as burning along the left side parispinal muscles, denies radiation of pain, weakness/sensory changes into her legs, midline tenderness, incontinence/retention of bowel or bladder, burning/increased frequency/blood in the urine, abdominal pain. Denies CP, SOB, F/C/N/V. Past History - Medical History Allergies/Adverse Reactions: Allergies Allergy/AdvReac Type Severity Reaction Status Date / Time No Known Allergies Allergy Verified 03/03/20 08:16 Home Medications: Ambulatory Orders Ibuprofen 600 mg PO QID PRN #20 tablet 12/20/19 Methocarbamol [Robaxin -] 500 mg PO BID PRN #14 tablet 03/05/20 Oxycodone HCl/Acetaminophen [Percocet 5-325 mg Tablet] 1 tab PO Q6H PRN #10 tablet MDD 4 tabs a day 03/05/20 Prednisone 10 mg PO TID 04/08/20 COPD: No Kidney Stones: Yes Other medical history: Chronic back pain - Surgical History Appendectomy: Yes - Reproductive History Is Patient Now?: No - Psycho-Social/Smoking History Smoking History: Former smoker Have you smoked in the past 12 months: No If you are a former smoker, when did you quit?: 1999 Information on smoking cessation initiated: No - Substance Abuse Hx (Audit-C & DAST Scrn) How often the patient has a drink containing alcohol: 4 0r more times/wk Number of drinks the patient has on a typical day: 1 or 2 How often the patient has six or more drinks on one occasion: Never Score: In Men: 4 or > Positive; In Women: 3 or > Positive: 4 Screen Result (Pos requires Nsg. Audit-10AR): Positive In the last yr the pt used illegal drug/Rx for NonMed reason: No Score: Yes response is considered Positive: 0 Screen Result (Positive result requires Nsg. DAST-10): Negative Review of Systems - Review of Systems Constitutional: Yes: Symptoms Reported HEENTM: Yes: Symptoms Reported Respiratory: Yes: Symptoms reported Cardiac (ROS): Yes: Symptoms Reported ABD/GI: Yes: Symptoms Reported : Yes: Symptoms Reported Musculoskeletal: Yes: Symptoms Reported Integumentary: Yes: Symptoms Reported Neurological: Yes: Symptoms reported *Physical Exam - Vital Signs Last Vital Signs Temp Pulse Resp BP Pulse Ox 98.7 F 89 16 137/80 100 04/08/20 09:01 04/08/20 09:01 04/08/20 09:01 04/08/20 09:01 04/08/20 09:01 - Physical Exam General Appearance: Yes: Nourished, Appropriately Dressed. No: Apparent Distress HEENT: positive: EOMI Neck: positive: Supple. negative: Rigidity, Tender lateral, Tender midline Respiratory/Chest: positive: Lungs Clear, Normal Breath Sounds Cardiovascular: positive: Regular Rhythm, Regular Rate Vascular Pulses: Dorsalis-Pedis (R): 4+, Doralis-Pedis (L): 4+ Gastrointestinal/Abdominal: positive: Flat, Soft Musculoskeletal: positive: Other (T8-L2 left parispinal muscle pain on palpation. Tense muscles noted. ROM limited in flexion/ext/side bending and rotation due to pain). negative: CVA Tenderness, Vertebral Tenderness Extremity: positive: Normal Capillary Refill, Normal Inspection, Normal Range of Motion, Pelvis Stable. 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 Pt presents to the ED frequently for back pain of a similar quality and intensity to todays complaint, denies any recent trauma, F/C/N/V or changes in urinary habits. Pt has been worked up multiple times in the past including labs, UA, CT scans showing T-L spine degenerative joint disease but otherwise, no specific diagnosis for acute/severe pain made. Pt given outpatient f/u with NS and Rheum, appointments pending. Pt states she has been dealing with this pain for approx 6 years with flare ups approx every 4 months however more recently, pt has noted an increased frequency of flare ups every month. Pt states the only thing that helps her pain is oxycodone, morphine and sometimes predisone all given to her on the last visit and all are almost finished. Pt reports anxiety related to her medications almost finishing. States she last took oxycodone last night which helped but has not taken Motrin or robaxin. Pain is described as burning along the left side parispinal muscles, denies radiation of pain, weakness/sensory changes into her legs, midline tenderness, incontinence/retention of bowel or bladder, burning/increased frequency/blood in the urine, abdominal pain. Denies CP, SOB, F/C/N/V. Vitals stable Postmenopausal. UA shows no concerning signs for renal stone or infection Given toradol, percocet and prednisone Pt reports improvement of pain and symptoms, improved ROM to normal No imaging recommended at this time due to chronic pain without alarming sy mptoms or recent injury or sign of infection Discussed pain management f/u and Physical therapy f/u with patient. States she will also see the NS and Rheum Doctor on upcoming appointments this month Pt safe for DC home with 2 Percocets and Physician f/u Discharge - Discharge Information Problems reviewed: Yes Clinical Impression/Diagnosis: Acute exacerbation of chronic low back pain Condition: Stable - Admission No - Follow up/Referral Referrals: Mando Villa MD, [facility] [Staff Physician] - Rashad Lockett MD [Staff Physician] - Reyes Avendano DO [Staff Physician] - Hansel Wilkes MD [Staff Physician] - - Patient Discharge Instructions Patient Printed Discharge Instructions: DI for Low Back Pain Additional Instructions: You were seen in the ER for an acute flare-up of your back pain. We gave you an injection of toradol, a Percocet, and a lidocaine which helped with take the edge off your pain. Please follow up with Neurosurgery and Rheumatology for your workup and treatment (we are giving the contact info in case you have misplaced it). Please also follow up with your primary care provider in 1-3 days. Call their clinic as soon as possible, tell them you were seen in the ER for back pain, and tell them you need an appointment. If you have any new or worsening symptoms please come back to the ER at any time (24 hours a day), especially for fever, new numbness, new tingling new weakness, new urinary or bowel incontinence or retention, or other new symptoms. If you are having severe or life threatening symptoms, or symptoms that make it unsafe to drive or have someone drive you, please call 911. Also, please see your Primary Doctor and and discuss outpatient Physical Therapy for further care of your pain. You were referred to Pain Management, please call and make an appointment as soon as possible. Thank you - Post Discharge Activity Work/Back to School Note: Back to Work
[2020-04-08] MEDS ORDERED: LIDOCAINE PATCH REMOVAL MC SCH (22:00)
== END 2020-04-08 11:01 | disposition home or self-care (01) ==
LOC: FER 09:00
PROC: 3E0233Z Introduction of Anti-inflammatory into Muscle, Percutaneous Approach (ICD-10-PCS; principal; 2020-04-08)
DX: M54.5 Low back pain (principal); G89.29 Other chronic pain
CPT/HCPCS: 81003; 81015; 99284-25

== ENCOUNTER 2021-08-09 07:22 | Emergency (ER) | payer OTHER ==
[2021-08-09 07:27] VITALS: BMI 23.0
[2021-08-09 07:34] VITALS: BP 116/82; PULSE 87; TEMP 98.2
[2021-08-09] MEDS ORDERED: ACETAMINOPHEN 325 MG TABLET (FP) PO ONE (07:53)
[2021-08-09] MEDS ORDERED: LIDOCAINE 5% TOPICAL PATCH TP ONE (07:53)
[2021-08-09] MEDS ORDERED: ACETAMINOPHEN 325 MG TABLET (FP) ONE (07:55)
[2021-08-09] MEDS ORDERED: LIDOCAINE 5% TOPICAL PATCH ONE (07:55)
[2021-08-09] MEDS ORDERED: LIDOCAINE PATCH REMOVAL MC SCH (22:00)
== END 2021-08-09 08:18 | disposition home or self-care (01) ==
LOC: FER 07:22
DX: M54.6 Pain in thoracic spine (principal)
CPT/HCPCS: 99283-25

== ENCOUNTER 2021-08-09 12:57 | Emergency (ER) | payer OTHER ==
[2021-08-09 13:04] VITALS: BP 116/53; PULSE 75; TEMP 98.1; BMI 23.0
[2021-08-09] MEDS ORDERED: IBUPROFEN 400 MG TABLET (FP) PO ONE ×2 (13:29→13:33)
== END 2021-08-09 13:47 | disposition home or self-care (01) ==
LOC: FER 12:57
DX: M54.6 Pain in thoracic spine (principal)
CPT/HCPCS: 99283-25

== ENCOUNTER 2022-01-25 18:47 | Emergency (ER) | payer OTHER ==
[2022-01-25 19:04] VITALS: BP 125/68; PULSE 68; TEMP 99.2; BMI 21.7
[2022-01-25] MEDS ORDERED: methylPREDNISolone NA SUCC 125 MG/2 ML VIAL IVPUSH ONE (19:10)
[2022-01-25] MEDS ORDERED: METHOCARBAMOL 500 MG TABLET PO ONE (19:11)
[2022-01-25] MEDS ORDERED: KETOROLAC TROMETHAMINE 30 MG/1 ML VIAL IVPUSH ONE (19:11)
[2022-01-25] MEDS ORDERED: METHOCARBAMOL 500 MG TABLET ONE (19:13)
[2022-01-25] MEDS ORDERED: methylPREDNISolone NA SUCC 125 MG/2 ML VIAL ONE (19:14)
[2022-01-25] MEDS ORDERED: KETOROLAC TROMETHAMINE 30 MG/1 ML VIAL ONE (19:14)
[2022-01-25] MEDS ORDERED: HYDROmorphone HCL CARPU-JECT 1 MG/1 ML DISP.SYRIN IVPUSH ONE (19:35)
[2022-01-25] MEDS ORDERED: HYDROmorphone HCL/PF 1 MG/ML VIAL ONE (19:36)
== END 2022-01-25 20:41 | disposition home or self-care (01) ==
LOC: FER 18:47
PROC: 3E033GC Introduction of Other Therapeutic Substance into Peripheral Vein, Percutaneous Approach (ICD-10-PCS; principal; 2022-01-25)
DX: M54.6 Pain in thoracic spine (principal)
CPT/HCPCS: 99284-25

== ENCOUNTER 2022-04-10 20:42 | Emergency (ER) | payer OTHER ==
[2022-04-10 20:51] VITALS: BP 119/56; PULSE 88; RESP 18; BMI 23.7
[2022-04-10 21:10] VITALS: TEMP 97.6
[2022-04-10] MEDS ORDERED: KETOROLAC TROMETHAMINE 30 MG/1 ML VIAL ONE (21:25)
[2022-04-10] MEDS ORDERED: KETOROLAC TROMETHAMINE 30 MG/1 ML VIAL IM ONE (21:25)
[2022-04-10] MEDS ORDERED: predniSONE 20 MG TABLET (UD) PO ONE (21:59)
[2022-04-10] MEDS ORDERED: predniSONE 20 MG TABLET (UD) ONE (22:01)
[2022-04-10] MEDS ORDERED: morphine CARPU-JECT 4 MG/1 ML DISP.SYRIN IM ONE (22:18)
[2022-04-10] MEDS ORDERED: morphine SULFATE 4 MG/ML VIAL ONE (22:20)
== END 2022-04-10 22:50 | disposition home or self-care (01) ==
LOC: FER 20:42
PROC: 3E023GC Introduction of Other Therapeutic Substance into Muscle, Percutaneous Approach (ICD-10-PCS; principal; 2022-04-10)
DX: M54.6 Pain in thoracic spine (principal)
CPT/HCPCS: 99284-25

== ENCOUNTER 2022-07-02 21:11 | Emergency (ER) | payer OTHER ==
[2022-07-02 21:22] VITALS: BP 132/92; PULSE 93; RESP 20; TEMP 98; BMI 22.4
[2022-07-02] MEDS ORDERED: predniSONE 20 MG TABLET (UD) ONE (21:28)
[2022-07-02] MEDS ORDERED: LIDOCAINE 5% TOPICAL PATCH ONE (21:28)
[2022-07-02] MEDS ORDERED: predniSONE 20 MG TABLET (UD) PO ONE (21:29)
[2022-07-02] MEDS ORDERED: LIDOCAINE 5% TOPICAL PATCH TP ONE (21:29)
[2022-07-02] MEDS ORDERED: LIDOCAINE PATCH REMOVAL MC SCH (22:00)
== END 2022-07-02 22:04 | disposition home or self-care (01) ==
LOC: FER 21:11
DX: M54.50 Low back pain, unspecified (principal)
CPT/HCPCS: 93005; 93010; 99283-25

== ENCOUNTER 2022-07-03 16:36 | Emergency (ER) | payer OTHER ==
[2022-07-03 16:45] VITALS: BP 136/76; PULSE 98; RESP 18; TEMP 99; BMI 21.7
[2022-07-03] MEDS ORDERED: HYDROmorphone HCL CARPU-JECT 1 MG/1 ML DISP.SYRIN IVPUSH ONE (18:33)
[2022-07-03] MEDS ORDERED: HYDROmorphone HCL/PF 1 MG/ML VIAL ONE ×2 (18:40→18:41)
== END 2022-07-03 19:20 | disposition home or self-care (01) ==
LOC: FER 16:36
PROC: 3E033GC Introduction of Other Therapeutic Substance into Peripheral Vein, Percutaneous Approach (ICD-10-PCS; principal; 2022-07-03)
DX: M54.50 Low back pain, unspecified (principal)
CPT/HCPCS: 99284-25

== ENCOUNTER 2022-07-31 20:15 | Emergency (ER) | payer OTHER ==
[2022-07-31 20:26] VITALS: BP 136/80; PULSE 80; RESP 20; TEMP 98.4; BMI 21.7
[2022-07-31] MEDS ORDERED: ACETAMINOPHEN 1000 MG/100 ML BAG IVPB ONE (20:38)
[2022-07-31] MEDS ORDERED: ACETAMINOPHEN INJECTION 100 ML IVPB ONE (20:44)
[2022-07-31 21:17] LABS: MCH 33.3 pg (25.7-33.7); MEAN CELL VOLUME 95.3 fl (80-96); MEAN PLT VOLUME 8.2 fl (7.5-11.1); RDW 13.4 % (11.6-15.6); WHITE BLOOD COUNT 10.5 10^3/uL (4.0-10.8)
[2022-07-31] MEDS ORDERED: HYDROmorphone HCL CARPU-JECT 1 MG/1 ML DISP.SYRIN IVPUSH ONE (21:19)
[2022-07-31] MEDS ORDERED: HYDROmorphone HCL/PF 1 MG/ML VIAL ONE (21:20)
[2022-07-31 21:25] LABS: ALBUMIN 4.1 g/dl (3.4-5.0); BILIRUBIN,TOTAL 0.6 mg/dl (0.2-1); CALCIUM 9.6 mg/dl (8.5-10); CREATININE 0.9 mg/dl (0.55-1.3); TOT PROT 6.7 g/dl (6.4-8.2)
[2022-07-31 21:51] LABS: PLATELET ESTIMATE ADEQUATE
== END 2022-08-01 00:32 | disposition home or self-care (01) ==
LOC: SUPCPDRO 20:15 → FER 20:15
PROC: 3E033GC Introduction of Other Therapeutic Substance into Peripheral Vein, Percutaneous Approach (ICD-10-PCS; principal; 2022-07-31)
DX: M54.50 Low back pain, unspecified (principal)
CPT/HCPCS: 36415; 74176-TC; 80053; 81003; 81015; 85027; 99285-25

== ENCOUNTER 2022-08-01 12:56 | Emergency (ER) | payer OTHER ==
[2022-08-01] MEDS ORDERED: METHOCARBAMOL 500 MG TABLET PO ONE (13:02)
[2022-08-01] MEDS ORDERED: KETOROLAC TROMETHAMINE 30 MG/1 ML VIAL IM ONE (13:03)
[2022-08-01 13:10] VITALS: BP 128/64; PULSE 74; RESP 20; TEMP 98.2; BMI 21.7
[2022-08-01] MEDS ORDERED: METHOCARBAMOL 500 MG TABLET ONE (13:20)
[2022-08-01] MEDS ORDERED: KETOROLAC TROMETHAMINE 30 MG/1 ML VIAL ONE (13:20)
[2022-08-01] MEDS ORDERED: diazePAM 5 MG TABLET PO ONE (14:00)
[2022-08-01] MEDS ORDERED: diazePAM 5 MG TABLET ONE (14:06)
== END 2022-08-01 15:09 | disposition home or self-care (01) ==
LOC: FER 12:56
PROC: 3E0233Z Introduction of Anti-inflammatory into Muscle, Percutaneous Approach (ICD-10-PCS; principal; 2022-08-01)
DX: M54.50 Low back pain, unspecified (principal)
CPT/HCPCS: 99284-25

== ENCOUNTER 2022-08-02 00:16 | Emergency (ER) | payer OTHER ==
[2022-08-02 00:21] VITALS: RESP 18; BMI 21.7
[2022-08-02 00:56] VITALS: BP 126/69; PULSE 85; TEMP 97.8
[2022-08-02] MEDS ORDERED: morphine CARPU-JECT 4 MG/1 ML DISP.SYRIN IM ONE (01:22)
[2022-08-02] MEDS ORDERED: morphine SULFATE 4 MG/ML VIAL ONE (01:30)
[2022-08-02] MEDS ORDERED: diazePAM 5 MG TABLET PO ONE (02:13)
[2022-08-02] MEDS ORDERED: diazePAM 5 MG TABLET ONE (02:15)
== END 2022-08-02 02:09 | disposition home or self-care (01) ==
LOC: FER 00:16
PROC: 3E023GC Introduction of Other Therapeutic Substance into Muscle, Percutaneous Approach (ICD-10-PCS; principal; 2022-08-02)
DX: M54.50 Low back pain, unspecified (principal)
CPT/HCPCS: 99284-25

== ENCOUNTER 2022-09-13 01:31 | Emergency (ER) | payer OTHER ==
[2022-09-13] MEDS ORDERED: KETOROLAC TROMETHAMINE 30 MG/1 ML VIAL IVPUSH ONE (01:34)
[2022-09-13] MEDS ORDERED: morphine CARPU-JECT 2 MG/1 ML DISP.SYRIN IVPUSH ONE (01:34)
[2022-09-13] MEDS ORDERED: SODIUM CHLORIDE 1,000 ML IV ONE (01:35)
[2022-09-13] MEDS ORDERED: morphine SULFATE 4 MG/ML VIAL ONE (01:48)
[2022-09-13] MEDS ORDERED: KETOROLAC TROMETHAMINE 30 MG/1 ML VIAL ONE (01:48)
[2022-09-13 02:11] VITALS: BP 109/62; PULSE 73; RESP 18; TEMP 97.8; BMI 23.0
[2022-09-13 02:47] LABS: HEMATOCRIT 39.4 % (32.4-45.2); HEMOGLOBIN 13.4 GM/dL (10.7-15.3); MCH 33.1 pg (25.7-33.7); MCHC 34.1 g/dl (32.0-36.0); MEAN CELL VOLUME 97.1 fl (80-96); MEAN PLT VOLUME 8.4 fl (7.5-11.1); PLATELET COUNT 320 10^3/uL (134-434); RBC 4.06 M/mm3 (3.60-5.2); RDW 12.4 % (11.6-15.6); WHITE BLOOD COUNT 7.2 K/mm3 (4.0-10.0)
[2022-09-13 02:50] LABS: EPI CELLS 4 /uL (0-25.1); HYALINE CASTS 0 /uL (0-3.1); PH,URINE 5.5 (5.0-8.0); URINE APPEARANCE CLEAR; URINE BACTERIA 34 /uL (0-1359); URINE BILIRUBIN NEGATIVE (NEGATIVE); URINE COLOR YELLOW; URINE GLUCOSE (UA) NEGATIVE (NEGATIVE); URINE KETONE NEGATIVE (NEGATIVE); URINE LEUK ESTERASE 2+ (NEGATIVE); URINE NITRITE NEGATIVE (NEGATIVE); URINE PROTEIN NEGATIVE (NEGATIVE); URINE RBC 4 /uL (0-23.9); URINE UROBILINOGEN 0.2 mg/dL (0.2-1.0); URINE WBC 23 /uL (0-25.8)
[2022-09-13 03:14] LABS: CALCIUM 10.8 mg/dL (8.5-10.1)
[2022-09-13 03:15] LABS: ALBUMIN 3.8 g/dl (3.4-5.0); BLOOD UREA NITROGEN 13.7 mg/dL (7-18)
[2022-09-13 03:18] LABS: CREATININE 0.9 mg/dL (0.55-1.3)
[2022-09-13 03:19] LABS: BILIRUBIN,TOTAL 0.3 mg/dL (0.2-1)
[2022-09-13 03:20] LABS: TOT PROT 6.8 g/dl (6.4-8.2)
== END 2022-09-13 03:41 | disposition home or self-care (01) ==
LOC: FER 01:31
PROC: 3E0333Z Introduction of Anti-inflammatory into Peripheral Vein, Percutaneous Approach (ICD-10-PCS; principal; 2022-09-13)
PROC: 3E033NZ Introduction of Analgesics, Hypnotics, Sedatives into Peripheral Vein, Percutaneous Approach (ICD-10-PCS; 2022-09-13)
PROC: 3E0337Z Introduction of Electrolytic and Water Balance Substance into Peripheral Vein, Percutaneous Approach (ICD-10-PCS; 2022-09-13)
DX: M54.50 Low back pain, unspecified (principal); R11.0 Nausea
CPT/HCPCS: 36415; 74176-TC; 80053; 81003; 85027; 99284-25

== ENCOUNTER 2023-01-23 20:30 | Emergency (ER) | payer OTHER ==
[2023-01-23 20:44] VITALS: BP 126/77; PULSE 88; RESP 16; TEMP 98.2; BMI 23.0
[2023-01-23] MEDS ORDERED: morphine CARPU-JECT 4 MG/1 ML DISP.SYRIN IM ONE (21:01)
[2023-01-23] MEDS ORDERED: morphine SULFATE 4 MG/ML VIAL ONE (21:03)
[2023-01-23] MEDS ORDERED: diazePAM 5 MG TABLET ONE (21:31)
[2023-01-23] MEDS ORDERED: diazePAM 5 MG TABLET PO ONE (21:31)
== END 2023-01-23 22:26 | disposition home or self-care (01) ==
LOC: FER 20:30
PROC: 3E023GC Introduction of Other Therapeutic Substance into Muscle, Percutaneous Approach (ICD-10-PCS; principal; 2023-01-23)
DX: M54.50 Low back pain, unspecified (principal)
CPT/HCPCS: 99284-25

== ENCOUNTER 2023-01-28 07:21 | Emergency (ER) | payer OTHER ==
[2023-01-28 07:30] VITALS: RESP 18; TEMP 98.3; BMI 23.0
[2023-01-28] MEDS ORDERED: morphine CARPU-JECT 2 MG/1 ML DISP.SYRIN IM ONE (08:43)
[2023-01-28] MEDS ORDERED: morphine SULFATE 4 MG/ML VIAL ONE (08:48)
[2023-01-28 09:24] VITALS: BP 133/72; PULSE 71
== END 2023-01-28 09:41 | disposition home or self-care (01) ==
LOC: FER 07:21
PROC: 3E023GC Introduction of Other Therapeutic Substance into Muscle, Percutaneous Approach (ICD-10-PCS; principal; 2023-01-28)
DX: M54.50 Low back pain, unspecified (principal)
CPT/HCPCS: 99284-25

== ENCOUNTER 2023-02-26 05:19 | Day surgery (SDC) | payer OTHER ==
[2023-02-25 16:22] VITALS: BMI 23.0
[~2023-02-26 05:19] MED LIST: LIDOCAINE HCL 1% PRESERVATIVE FREE - 30ML VIAL IJ ONE
[2023-02-26] MEDS ORDERED: LIDOCAINE HCL/PF 1% SDV 5ML VIAL ONE (07:32)
[2023-02-26] MEDS ORDERED: BUPIVACAINE HCL/PF 0.5% (5MG/ML) 10 ML VIAL ONE ×2 (07:32→11:19)
[2023-02-26] MEDS ORDERED: BUPIVACAINE HCL/PF 0.5% (5MG/ML) 10 ML VIAL IJ ONE (11:35)
[2023-02-26 12:34] VITALS: BP 126/60; PULSE 76; RESP 20; TEMP 97.7
[2023-02-26] MEDS ORDERED: ACETAMINOPHEN 500 MG TABLET (FP) PO PRN (19:47)
== END 2023-02-26 13:21 | disposition home or self-care (01) ==
LOC: JASU-SURG 05:19
PROVIDERS: ATTEND Pain Medicine Pain Medicine
PROC: 3E0T33Z Introduction of Anti-inflammatory into Peripheral Nerves and Plexi, Percutaneous Approach (ICD-10-PCS; 2023-02-26)
PROC: 3E0T3BZ Introduction of Anesthetic Agent into Peripheral Nerves and Plexi, Percutaneous Approach (ICD-10-PCS; principal; 2023-02-26 11:30)
DX: M47.812 Spondylosis without myelopathy or radiculopathy, cervical region (principal)
CPT/HCPCS: 76000-TC-FY

== ENCOUNTER 2023-04-02 04:17 | Day surgery (SDC) | payer OTHER ==
[2023-04-01 11:15] VITALS: BMI 23.0
[~2023-04-02 04:17] MED LIST changes: +BUPIVACAINE HCL/PF 0.5% (5MG/ML) 10 ML VIAL IJ ONE; -LIDOCAINE HCL 1% PRESERVATIVE FREE - 30ML VIAL IJ ONE
[2023-04-02 12:13] VITALS: RESP 20
[2023-04-02] MEDS ORDERED: BUPIVACAINE HCL/PF 0.5% (5MG/ML) 10 ML VIAL IJ ONE (12:51)
[2023-04-02 13:38] VITALS: BP 128/65; PULSE 79; TEMP 98
[2023-04-02] MEDS ORDERED: ACETAMINOPHEN 500 MG TABLET (FP) PO PRN (14:33)
== END 2023-04-02 14:00 | disposition home or self-care (01) ==
LOC: JASU-SURG 04:17
PROVIDERS: ATTEND Pain Medicine Pain Medicine
PROC: 3E0T33Z Introduction of Anti-inflammatory into Peripheral Nerves and Plexi, Percutaneous Approach (ICD-10-PCS; 2023-04-02)
PROC: 3E0T3BZ Introduction of Anesthetic Agent into Peripheral Nerves and Plexi, Percutaneous Approach (ICD-10-PCS; principal; 2023-04-02 13:45)
DX: M47.812 Spondylosis without myelopathy or radiculopathy, cervical region (principal)
CPT/HCPCS: 76000-TC-FY

== ENCOUNTER 2023-04-14 22:10 | Emergency (ER) | payer OTHER ==
[2023-04-14 22:20] VITALS: BP 123/72; PULSE 86; RESP 19; TEMP 98.3; BMI 23.0
[2023-04-14] MEDS ORDERED: morphine CARPU-JECT 2 MG/1 ML DISP.SYRIN IM ONE (22:33)
[2023-04-14] MEDS ORDERED: morphine SULFATE 4 MG/ML VIAL ONE (23:00)
== END 2023-04-14 23:26 | disposition home or self-care (01) ==
LOC: FER 22:10
PROC: 3E023GC Introduction of Other Therapeutic Substance into Muscle, Percutaneous Approach (ICD-10-PCS; principal; 2023-04-14)
DX: M54.50 Low back pain, unspecified (principal); G89.29 Other chronic pain
CPT/HCPCS: 99284-25

== ENCOUNTER 2023-08-14 19:54 | Emergency (ER) | payer OTHER ==
[2023-08-14 20:10] VITALS: BP 127/76; PULSE 98; RESP 18; TEMP 98.5; BMI 25.4
[2023-08-14 21:27] LABS: HEMATOCRIT 39.7 % (32.4-45.2); HEMOGLOBIN 13.9 G/dL (10.7-15.3); MCH 33.6 pg (25.7-33.7); MEAN CELL VOLUME 96.2 fl (80-96); MEAN PLT VOLUME 8.5 fl (7.5-11.1); PLATELET COUNT 289.5 10^3/uL (134-434); RBC 4.13 10^6/uL (3.60-5.2); RDW 12.8 % (11.6-15.6); WHITE BLOOD COUNT 4.5 10^3/uL (4.0-10.8)
[2023-08-14 21:30] LABS: INR 1.04 (0.83-1.09); PROTHROMBIN TIME (PATIENT) 12.1 SEC (9.7-13.0)
[2023-08-14 21:43] LABS: PLATELET ESTIMATE ADEQUATE
[2023-08-14] MEDS ORDERED: valACYclovir HCL 500 MG TABLET (FP) PO ONE (22:05)
== END 2023-08-14 22:13 | disposition home or self-care (01) ==
LOC: FER 19:54
DX: M25.512 Pain in left shoulder (principal); R21 Rash and other nonspecific skin eruption; B02.9 Zoster without complications
CPT/HCPCS: 36415; 85027; 85610; 99283-25

== ENCOUNTER 2024-04-05 06:35 | Emergency (ER) | payer SELFPAY ==
[2024-04-05 06:45] VITALS: BP 121/92; PULSE 72; RESP 18; TEMP 97.7; BMI 25.4
[2024-04-05] MEDS ORDERED: ONDANSETRON 4 MG/2 ML VIAL ONE (07:22)
[2024-04-05] MEDS ORDERED: morphine SULFATE 4 MG/ML VIAL ONE ×2 (07:22→08:33)
[2024-04-05] MEDS: SODIUM CHLORIDE 1,000 ML IV STA (07:25)
[2024-04-05] MEDS: ONDANSETRON 4 MG/2 ML VIAL IVPUSH ONE (07:25)
[2024-04-05] MEDS: morphine CARPU-JECT 4 MG/1 ML DISP.SYRIN IVPUSH ONE ×2 (07:33→08:43)
[2024-04-05 09:11] LABS: HEMATOCRIT 44.4 % (32.4-45.2); HEMOGLOBIN 14.4 G/dL (10.7-15.3); MCH 30.4 pg (25.7-33.7); MCHC 32.4 g/dl (32.0-36.0); MEAN CELL VOLUME 93.8 fl (80-96); MEAN PLT VOLUME 8.9 fl (7.5-11.1); PLATELET COUNT 290.3 10^3/uL (134-434); RBC 4.73 10^6/uL (3.60-5.2)
[2024-04-05 09:39] LABS: ALBUMIN 4.5 g/dl (3.4-5.0); ALK PHOS 101 U/L (45-117); ANION GAP 7 mmol/L (4-13); BILIRUBIN,TOTAL 0.5 mg/dl (0.2-1); CALCIUM 10.8 mg/dl (8.5-10.1); CHLORIDE 100 mmol/L (98-107); CO2 29 mmol/L (21-32); CREATININE 0.9 mg/dl (0.6-1.3); GLUCOSE,RANDOM 91 mg/dl (74-106); POTASSIUM 4.5 mmol/L (3.5-5.1); SGOT/AST 14 U/L (15-37); SGPT/ALT 12 U/L (7-52); SODIUM 136 mmol/L (136-145); TOT PROT 6.9 g/dl (6.4-8.2)
[2024-04-05 09:49] LABS: PLATELET ESTIMATE ADEQUATE
== END 2024-04-05 10:35 | disposition home or self-care (01) ==
LOC: FER 06:35
PROC: 3E033GC Introduction of Other Therapeutic Substance into Peripheral Vein, Percutaneous Approach (ICD-10-PCS; principal; 2024-04-05)
PROC: 3E033NZ Introduction of Analgesics, Hypnotics, Sedatives into Peripheral Vein, Percutaneous Approach (ICD-10-PCS; 2024-04-05)
PROC: 3E033NZ Introduction of Analgesics, Hypnotics, Sedatives into Peripheral Vein, Percutaneous Approach (ICD-10-PCS; 2024-04-05)
PROC: 3E0337Z Introduction of Electrolytic and Water Balance Substance into Peripheral Vein, Percutaneous Approach (ICD-10-PCS; 2024-04-05)
DX: R10.9 Unspecified abdominal pain (principal)
CPT/HCPCS: 36415; 74176-TC; 80053; 81003; 81015; 85025; 87086; 99284-25

== ENCOUNTER 2024-06-09 16:40 | Emergency (ER) | payer BC ==
[2024-06-09 16:54] VITALS: BP 134/64; PULSE 87; RESP 16; TEMP 98.2; BMI 22.4
[2024-06-09] MEDS ORDERED: morphine SULFATE 4 MG/ML VIAL ONE ×2 (17:00→17:38)
[2024-06-09] MEDS: morphine CARPU-JECT 4 MG/1 ML DISP.SYRIN IVPUSH ONE ×3 (17:11→17:42)
[2024-06-09] MEDS: morphine CARPU-JECT 4 MG/1 ML DISP.SYRIN IM ONE (17:12)
[2024-06-09 23:11] LABS: HIV INTERPRETATION NEGATIVE (NEGATIVE)
== END 2024-06-09 19:23 | disposition home or self-care (01) ==
LOC: FER 16:40
PROC: 3E033NZ Introduction of Analgesics, Hypnotics, Sedatives into Peripheral Vein, Percutaneous Approach (ICD-10-PCS; principal; 2024-06-09)
PROC: 3E033NZ Introduction of Analgesics, Hypnotics, Sedatives into Peripheral Vein, Percutaneous Approach (ICD-10-PCS; 2024-06-09)
DX: M54.50 Low back pain, unspecified (principal); G89.29 Other chronic pain
CPT/HCPCS: 36415; 81003; 86803; 87086; 87389; 99284-25

== ENCOUNTER 2024-07-30 15:28 | Emergency (ER) | payer BC ==
[2024-07-30] MEDS: morphine CARPU-JECT 2 MG/1 ML DISP.SYRIN SQ ONE (15:43)
[2024-07-30 16:08] LABS: EPITHELIAL CELLS 0-5 /hpf
[2024-07-30 16:15] VITALS: BP 133/59; RESP 18; BMI 23.0
[2024-07-30 16:16] VITALS: PULSE 73; TEMP 97.7
[2024-07-30] MEDS: morphine CARPU-JECT 2 MG/1 ML DISP.SYRIN IM ONE (16:23)
== END 2024-07-30 16:46 | disposition home or self-care (01) ==
LOC: FER 15:28
PROC: 3E013NZ Introduction of Analgesics, Hypnotics, Sedatives into Subcutaneous Tissue, Percutaneous Approach (ICD-10-PCS; principal; 2024-07-30)
DX: N39.0 Urinary tract infection, site not specified (principal); R10.9 Unspecified abdominal pain
CPT/HCPCS: 81003; 81015; 99284-25

== ENCOUNTER 2024-07-30 21:06 | Emergency (ER) | payer BC ==
[2024-07-30 21:17] VITALS: BP 114/62; PULSE 77; RESP 16; TEMP 97.3; BMI 23.0
[2024-07-30] MEDS ORDERED: KETOROLAC TROMETHAMINE 30 MG/1 ML VIAL ONE (22:14)
[2024-07-30] MEDS: KETOROLAC TROMETHAMINE 30 MG/1 ML VIAL IVPUSH ONE (22:33)
[2024-07-30] MEDS ORDERED: morphine SULFATE 4 MG/ML VIAL ONE (22:33)
[2024-07-30] MEDS: morphine CARPU-JECT 4 MG/1 ML DISP.SYRIN IVPUSH ONE (22:35)
[2024-07-30 22:45] LABS: HEMATOCRIT 39.8 % (32.4-45.2); HEMOGLOBIN 13.5 G/dL (10.7-15.3); MCH 31.2 pg (25.7-33.7); MCHC 33.9 g/dl (32.0-36.0); MEAN CELL VOLUME 92.2 fl (80-96); MEAN PLT VOLUME 9.3 fl (7.5-11.1); PLATELET COUNT 221.3 10^3/uL (134-434); RBC 4.32 10^6/uL (3.60-5.2); RDW 13.5 % (11.6-15.6); WHITE BLOOD COUNT 7.7 10^3/uL (4.0-10.8)
[2024-07-30 22:57] LABS: ALBUMIN 4.2 g/dl (3.4-5.0); BILIRUBIN,TOTAL 0.5 mg/dl (0.2-1); CALCIUM 10.2 mg/dl (8.5-10.1); CREATININE 0.8 mg/dl (0.6-1.3); POTASSIUM 3.8 mmol/L (3.5-5.1); TOT PROT 6.4 g/dl (6.4-8.2)
[2024-07-31 13:34] LABS: HIV INTERPRETATION NEGATIVE (NEGATIVE)
== END 2024-07-31 00:44 | disposition home or self-care (01) ==
LOC: FER 21:06
PROC: 3E0333Z Introduction of Anti-inflammatory into Peripheral Vein, Percutaneous Approach (ICD-10-PCS; principal; 2024-07-30)
PROC: 3E033NZ Introduction of Analgesics, Hypnotics, Sedatives into Peripheral Vein, Percutaneous Approach (ICD-10-PCS; 2024-07-30)
DX: R10.9 Unspecified abdominal pain (principal)
CPT/HCPCS: 36415; 74176-TC; 80053; 85027; 86803; 87389; 99284-25